=== PATIENT | female | born 1980 | race Two or more races ===

== ENCOUNTER 2023-04-10 21:48 | Emergency (ER) | payer MEDICAID, OTHER ==
[~2023-04-10] VITALS: Ht 170.2 cm; Wt 80.7 kg
[2023-04-10 22:20] VITALS: BP 144/91
== END 2023-04-11 01:27 | disposition left against medical advice (07) ==
LOC: ER 21:57
DX: R51.9 Headache, unspecified (principal); M25.511 Pain in right shoulder; Z53.21 Procedure and treatment not carried out due to patient leaving prior to being seen by health care provider; Y04.8XXA Assault by other bodily force, initial encounter; Y93.89 Activity, other specified; Y92.89 Other specified places as the place of occurrence of the external cause; Y99.8 Other external cause status
CPT/HCPCS: 70450; 70486; 72125; 73030; 73562